=== PATIENT | female | born 1980 | race Caucasian/White ===

== ENCOUNTER 2017-02-21 17:25 | Observation (INO) | payer OTHER ==
[~2017-02-21] VITALS: Ht 165 cm; Wt 98.0 kg
[~2017-02-21 17:25] MED LIST: DOCU-119 PO; FERR-72 PO; IBUP-2070 PO
[2017-02-21] MEDS ORDERED: PREN1TAB80 PO (17:36)
[2017-02-21 17:56] VITALS: BP 114/62
== END 2017-02-21 20:23 | disposition home or self-care (01) ==
LOC: 4S 17:25
PROVIDERS: ADMIT Obstetrics & Gynecology; ATTEND Obstetrics & Gynecology
DX: O36.8130 Decreased fetal movements, third trimester, not applicable or unspecified (principal); Z3A.39 39 weeks gestation of pregnancy
CPT/HCPCS: 59025; G0378

== ENCOUNTER 2017-03-06 11:46 | Inpatient (IN) | payer OTHER ==
[~2017-03-06] VITALS: Ht 165.1 cm; Wt 99.8 kg
[~2017-03-06 11:46] MED LIST changes: -DOCU-119 PO; -IBUP-2070 PO; +PREN1TAB80 PO
[2017-03-06 12:05] VITALS: BP 126/84
[2017-03-06 14:27] LABS: GLUCOSE,POINT OF CARE 84 MG/DL (70-110)
[2017-03-06] MEDS ORDERED: OXYTOCIN 30 UNITS/LACT RINGERS 500 ML IV PRN (14:55)
[2017-03-06] MEDS: RINGERS SOLUTION,LACTATED 1,000 ML IV SCH ×2 (15:48→18:00)
[2017-03-06] MEDS ORDERED: RINGERS SOLUTION,LACTATED 1,000 ML IV PRN (16:26)
[2017-03-06] MEDS ORDERED: METOCLOPRAMIDE HCL 5 MG/ML 2 ML VIAL IVP PRN (16:30)
[2017-03-06] MEDS ORDERED: CITRIC ACID/SODIUM CITRATE 30 ML SOLUTION UDCUP PO PRN (16:30)
[2017-03-06] MEDS ORDERED: BUPIVACAINE HCL/PF 0.25% 10 ML VIAL ONE (17:07)
[2017-03-06] MEDS ORDERED: LIDOCAINE HCL/PF 2% 5 ML VIAL ONE (17:07)
[2017-03-06] MEDS ORDERED: FentaNYL/BUPIV 0.125%/NS/PF 200 ML ED ONE (17:08)
[2017-03-06 17:09] LABS: BASOPHILS % (AUTO) 0.2 % (0.0-2.0); HEMATOCRIT 32.2 % (36-46); HEMOGLOBIN 10.3 g/dL (12.0-16.0); LYMPHOCYTES # (AUTO) 2.3 K/uL (1.0-4.8); LYMPHOCYTES % (AUTO) 24.3 % (22.0-44.0); MEAN CORPUSCULAR HEMOGLOBIN 27.6 pg (26.0-34.0); MEAN CORPUSCULAR HGB CONC 31.9 G/dL (31.0-37.0); MEAN CORPUSCULAR VOLUME 86 fL (80-100); MONOCYTES # (AUTO) 0.5 K/uL (0.1-1.0); MONOCYTES % (AUTO) 5.1 % (2.0-9.0); NEUTROPHILS # (AUTO) 6.5 K/uL (1.8-7.7); NEUTROPHILS % (AUTO) 69.4 % (40.0-70.0); RED BLOOD CELL COUNT(AUTO) 3.73 MIL/uL (4.00-5.20); WHITE BLOOD COUNT (AUTO) 9.3 K/uL (4.5-11.0)
[2017-03-06] MEDS ORDERED: FentaNYL CITRATE-PF 100 MCG/2 ML VIAL ONE (17:09)
[2017-03-06] MEDS ORDERED: FentaNYL/BUPIV 0.125%/NS/PF 200 ML ED PRN (17:55)
[2017-03-06] MEDS ORDERED: PROMETHAZINE HCL 12.5 MG in SODIUM CHLORIDE 0.9% 50 ML IV PRN (18:00)
[2017-03-06] MEDS ORDERED: ONDANSETRON HCL 4 MG/2 ML VIAL IVP PRN (18:00)
[2017-03-06] MEDS ORDERED: NALBUPHINE HCL 10 MG/ML VIAL IVP PRN ×2 (18:00)
[2017-03-06] MEDS ORDERED: DiphenhydrAMINE HCL 50 MG/ML VIAL IVP PRN (18:00)
[2017-03-06] MEDS ORDERED: OXYGEN THERAPY IH SCH (20:00)
[2017-03-06] MEDS ORDERED: RINGERS SOLUTION,LACTATED 1,000 ML IV ONE (21:34)
[2017-03-06] MEDS ORDERED: IBUPROFEN 600 MG TABLET PO PRN (21:45)
[2017-03-06] MEDS ORDERED: MEASLES/MUMPS/RUBELLA VACCINE, LIVE 0.5 ML/VIAL SQ ONE (21:45)
[2017-03-06] MEDS ORDERED: OxyCODONE HCL/ACETAMINOPHEN 5-325 MG TABLET PO PRN ×2 (21:45)
[2017-03-06] MEDS ORDERED: BENZOCAINE 20%/MENTHOL 56 GM SPRAY CANISTER TP PRN (21:45)
[2017-03-06] MEDS ORDERED: GLYCERIN/WITCH HAZEL LEAF 40 PADS JAR TP PRN (21:45)
[2017-03-06] MEDS ORDERED: LANOLIN 7 GM OINTMENT TP PRN (21:45)
[2017-03-06] MEDS ORDERED: OXYTOCIN 30 UNITS/LACT RINGERS 500 ML IV ONE (22:00)
[2017-03-07] MEDS ORDERED: MAGNESIUM HYDROXIDE SUSPENSION 30 ML UDCUP PO SCH (09:00)
[2017-03-07 12:11] LABS: BASOPHILS # (AUTO) 0.13 K/uL (0.00-0.20); BASOPHILS % (AUTO) 0.8 % (0.0-2.0); EOSINOPHILS # (AUTO) 0.05 K/uL (0.00-0.70); EOSINOPHILS % (AUTO) 0.36 % (1.0-6.0); HEMATOCRIT 29.1 % (36-46); HEMOGLOBIN 9.5 g/dL (12.0-16.0); LYMPHOCYTES # (AUTO) 2.1 K/uL (1.0-4.8); LYMPHOCYTES % (AUTO) 13.7 % (22.0-44.0); MEAN CORPUSCULAR HEMOGLOBIN 28.4 pg (26.0-34.0); MEAN CORPUSCULAR HGB CONC 32.6 G/dL (31.0-37.0); MEAN CORPUSCULAR VOLUME 87 fL (80-100); MONOCYTES # (AUTO) 0.9 K/uL (0.1-1.0); MONOCYTES % (AUTO) 5.7 % (2.0-9.0); NEUTROPHILS # (AUTO) 11.9 K/uL (1.8-7.7); NEUTROPHILS % (AUTO) 79.4 % (40.0-70.0); RED BLOOD CELL COUNT(AUTO) 3.34 MIL/uL (4.00-5.20); RED CELL DISTRIBUTION WIDTH 14.6 % (11.5-14.5)
[2017-03-08] MEDS ORDERED: FERR-89 PO (08:52)
[2017-03-08] MEDS ORDERED: DSS100 PO (08:53)
[2017-03-08] MEDS ORDERED: IBUP-2070 PO (08:55)
== END 2017-03-08 09:25 | disposition home or self-care (01) | DRG 775 ==
LOC: 4S 11:46 → OBSVTOIN 11:46
PROVIDERS: ADMIT Obstetrics & Gynecology; ATTEND Obstetrics & Gynecology
PROC: 10E0XZZ Delivery of Products of Conception, External Approach (ICD-10-PCS; principal; 2017-03-06)
PROC: 10907ZC Drainage of Amniotic Fluid, Therapeutic from Products of Conception, Via Natural or Artificial Opening (ICD-10-PCS; 2017-03-06)
PROC: 3E0S3CZ (ICD-10-PCS; 2017-03-06)
PROC: 00HU33Z Insertion of Infusion Device into Spinal Canal, Percutaneous Approach (ICD-10-PCS; 2017-03-06)
DX: O24.429 Gestational diabetes mellitus in childbirth, unspecified control (principal); O16.4 Unspecified maternal hypertension, complicating childbirth; O99.214 Obesity complicating childbirth; E66.9 Obesity, unspecified; O99.02 Anemia complicating childbirth; Z37.0 Single live birth; Z88.8 Allergy status to other drugs, medicaments and biological substances; Z88.5 Allergy status to narcotic agent; Z3A.41 41 weeks gestation of pregnancy; Z28.9 Immunization not carried out for unspecified reason; Z68.36 Body mass index [BMI] 36.0-36.9, adult
CPT/HCPCS: 82962; 86850; 86900; 86901; J2590; J3010; J3490; J7120

== ENCOUNTER 2018-08-12 19:50 | Observation (INO) | payer OTHER ==
[~2018-08-12] VITALS: Ht 165 cm; Wt 95.3 kg
[~2018-08-12 19:50] MED LIST changes: +DSS100 PO; -FERR-72 PO; +FERR-89 PO; +IBUP-2070 PO
[2018-08-12 20:56] VITALS: BP 116/73
== END 2018-08-12 21:50 | disposition home or self-care (01) ==
LOC: 4S 19:50
PROVIDERS: ADMIT Obstetrics & Gynecology; ATTEND Obstetrics & Gynecology
DX: O62.9 Abnormality of forces of labor, unspecified (principal); O26.893 Other specified pregnancy related conditions, third trimester; R10.30 Lower abdominal pain, unspecified; O09.523 Supervision of elderly multigravida, third trimester; Z3A.39 39 weeks gestation of pregnancy
CPT/HCPCS: 59025; G0378

== ENCOUNTER 2018-08-18 06:49 | Observation (INO) | payer OTHER ==
[~2018-08-18] VITALS: Ht 165 cm; Wt 94.3 kg
[2018-08-18] MEDS ORDERED: OXYTOCIN 30 UNITS/LACT RINGERS 500 ML IV ONE (07:15)
[2018-08-18] MEDS ORDERED: CITRIC ACID/SODIUM CITRATE 30 ML SOLUTION UDCUP PO PRN (07:15)
[2018-08-18] MEDS ORDERED: RINGERS SOLUTION,LACTATED 1,000 ML IV PRN (07:15)
[2018-08-18] MEDS ORDERED: METOCLOPRAMIDE HCL 5 MG/ML 2 ML VIAL IVP PRN (07:15)
[2018-08-18] MEDS ORDERED: FentaNYL CITRATE-PF 100 MCG/2 ML VIAL IVP PRN (07:15)
[2018-08-18 07:49] LABS: BASOPHILS % (AUTO) 0.7 % (0.0-2.0); EOSINOPHILS % (AUTO) 1.6 % (1.0-6.0); LYMPHOCYTES # (AUTO) 2.6 K/uL (1.0-4.8); MEAN CORPUSCULAR HEMOGLOBIN 26.7 pg (26.0-34.0); MEAN CORPUSCULAR HGB CONC 33.3 G/dL (31.0-37.0); MEAN CORPUSCULAR VOLUME 80 fL (80-100); MONOCYTES # (AUTO) 0.6 K/uL (0.1-1.0); MONOCYTES % (AUTO) 5.6 % (2.0-9.0); NEUTROPHILS # (AUTO) 6.6 K/uL (1.8-7.7); NEUTROPHILS % (AUTO) 66.1 % (40.0-70.0); PLATELET COUNT (AUTO)-OB 196 K/uL (150-450); RED BLOOD CELL COUNT(AUTO) 3.75 MIL/uL (4.00-5.20); RED CELL DISTRIBUTION WIDTH 16.1 % (11.5-14.5)
[2018-08-18 07:50] VITALS: BP 104/64
[2018-08-18] MEDS ORDERED: OXYGEN THERAPY IH SCH (08:00)
[2018-08-18] MEDS: RINGERS SOLUTION,LACTATED 1,000 ML IV SCH ×3 (08:50→23:37)
[2018-08-18] MEDS: MISOPROSTOL 25 MCG TABLET PO SCH ×3 (09:30→18:37)
== END 2018-08-19 03:00 | disposition home or self-care (01) ==
LOC: 4S 06:49 → OBSVTOIN 06:49 → INTOOBSV 06:49
PROVIDERS: ADMIT Obstetrics & Gynecology; ATTEND Obstetrics & Gynecology
DX: O48.0 Post-term pregnancy (principal); O09.523 Supervision of elderly multigravida, third trimester; Z3A.40 40 weeks gestation of pregnancy
CPT/HCPCS: 36415; 59025; 85025; 86850; 86900; 86901; G0378 ×2; J7120

== ENCOUNTER 2018-08-19 19:12 | Inpatient (IN) | payer OTHER ==
[~2018-08-19] VITALS: Ht 165 cm; Wt 95.3 kg
[2018-08-19] MEDS ORDERED: OXYTOCIN 30 UNITS/LACT RINGERS 500 ML IV ONE (19:19)
[2018-08-19] MEDS ORDERED: RINGERS SOLUTION,LACTATED 1,000 ML IV ONE (19:19)
[2018-08-19] MEDS ORDERED: LIDOCAINE/PF 1% 30 ML VIAL INJ PRN (19:30)
[2018-08-19] MEDS ORDERED: METOCLOPRAMIDE HCL 5 MG/ML 2 ML VIAL IVP PRN (19:30)
[2018-08-19] MEDS ORDERED: FentaNYL CITRATE-PF 100 MCG/2 ML VIAL IVP PRN (19:30)
[2018-08-19] MEDS ORDERED: CITRIC ACID/SODIUM CITRATE 30 ML SOLUTION UDCUP PO PRN (19:30)
[2018-08-19 20:03] LABS: BASOPHILS % (AUTO) 0.4 % (0.0-2.0); EOSINOPHILS % (AUTO) 1.1 % (1.0-6.0); HEMATOCRIT 29.2 % (36-46); HEMOGLOBIN 9.9 g/dL (12.0-16.0); LYMPHOCYTES # (AUTO) 2.5 K/uL (1.0-4.8); LYMPHOCYTES % (AUTO) 25.5 % (22.0-44.0); MEAN CORPUSCULAR HEMOGLOBIN 26.6 pg (26.0-34.0); MEAN CORPUSCULAR HGB CONC 33.8 G/dL (31.0-37.0); MEAN CORPUSCULAR VOLUME 79 fL (80-100); MONOCYTES # (AUTO) 0.6 K/uL (0.1-1.0); MONOCYTES % (AUTO) 6.4 % (2.0-9.0); NEUTROPHILS # (AUTO) 6.6 K/uL (1.8-7.7); NEUTROPHILS % (AUTO) 66.6 % (40.0-70.0); PLATELET COUNT (AUTO) 191 K/uL (150-450); RED BLOOD CELL COUNT(AUTO) 3.71 MIL/uL (4.00-5.20); RED CELL DISTRIBUTION WIDTH 15.9 % (11.5-14.5)
[2018-08-19] MEDS: RINGERS SOLUTION,LACTATED 1,000 ML IV SCH (20:34)
[2018-08-19 21:09] VITALS: BP 119/75
[2018-08-19] MEDS ORDERED: MISOPROSTOL 25 MCG TABLET VG SCH (21:15)
[2018-08-20] MEDS ORDERED: OXYTOCIN 30 UNITS/LACT RINGERS 500 ML IV PRN (01:00)
[2018-08-20] MEDS ORDERED: ROPIVACAINE HCL/PF 0.2% 100 ML ED ONE (01:28)
[2018-08-20] MEDS ORDERED: ROPIVACAINE HCL/PF 0.2% 100 ML ED PRN (02:00)
[2018-08-20] MEDS ORDERED: DiphenhydrAMINE HCL 50 MG/ML VIAL IVP PRN (02:00)
[2018-08-20] MEDS ORDERED: ONDANSETRON HCL 4 MG/2 ML VIAL IVP PRN (02:00)
[2018-08-20] MEDS: RINGERS SOLUTION,LACTATED 1,000 ML IV SCH ×2 (02:24→09:18)
[2018-08-20] MEDS ORDERED: OXYTOCIN 30 UNITS/LACT RINGERS 500 ML IV ONE (13:13)
[2018-08-20] MEDS ORDERED: BENZOCAINE 20%/MENTHOL 56 GM SPRAY CANISTER TP PRN (13:15)
[2018-08-20] MEDS ORDERED: GLYCERIN/WITCH HAZEL LEAF 40 PADS JAR TP PRN (13:15)
[2018-08-20] MEDS ORDERED: LANOLIN 7 GM OINTMENT TP PRN (13:15)
[2018-08-20] MEDS ORDERED: OxyCODONE HCL/ACETAMINOPHEN 5-325 MG TABLET PO PRN ×2 (13:15)
[2018-08-20] MEDS: IBUPROFEN 800 MG TABLET PO PRN ×2 (13:33→18:56)
[2018-08-20] MEDS: MAGNESIUM HYDROXIDE SUSPENSION 30 ML UDCUP PO PRN (21:18)
[2018-08-21 06:22] LABS: BASOPHILS % (AUTO) 0.3 % (0.0-2.0); EOSINOPHILS % (AUTO) 1.1 % (1.0-6.0); HEMATOCRIT 27.4 % (36-46); HEMOGLOBIN 9.1 g/dL (12.0-16.0); LYMPHOCYTES # (AUTO) 2.6 K/uL (1.0-4.8); LYMPHOCYTES % (AUTO) 24.8 % (22.0-44.0); MEAN CORPUSCULAR HEMOGLOBIN 26.7 pg (26.0-34.0); MEAN CORPUSCULAR HGB CONC 33.1 G/dL (31.0-37.0); MEAN CORPUSCULAR VOLUME 81 fL (80-100); MONOCYTES # (AUTO) 0.6 K/uL (0.1-1.0); MONOCYTES % (AUTO) 6.1 % (2.0-9.0); NEUTROPHILS # (AUTO) 7.1 K/uL (1.8-7.7); NEUTROPHILS % (AUTO) 67.7 % (40.0-70.0); PLATELET COUNT (AUTO)-OB 166 K/uL (150-450); RED BLOOD CELL COUNT(AUTO) 3.39 MIL/uL (4.00-5.20); RED CELL DISTRIBUTION WIDTH 16.2 % (11.5-14.5)
[2018-08-21] MEDS: MAGNESIUM HYDROXIDE SUSPENSION 30 ML UDCUP PO PRN (09:39)
[2018-08-21] MEDS ORDERED: IBUP-2071 PO (11:51)
== END 2018-08-21 13:10 | disposition home or self-care (01) | DRG 807 ==
LOC: OBSVTOIN 19:12 → 4S 19:12
PROVIDERS: ADMIT Obstetrics & Gynecology; ATTEND Obstetrics & Gynecology
PROC: 10E0XZZ Delivery of Products of Conception, External Approach (ICD-10-PCS; principal; 2018-08-20)
PROC: 3E0R3BZ Introduction of Anesthetic Agent into Spinal Canal, Percutaneous Approach (ICD-10-PCS; 2018-08-20)
PROC: 00HU33Z Insertion of Infusion Device into Spinal Canal, Percutaneous Approach (ICD-10-PCS; 2018-08-20)
DX: O09.523 Supervision of elderly multigravida, third trimester (principal); Z37.0 Single live birth; Z3A.40 40 weeks gestation of pregnancy
CPT/HCPCS: J2590; J2795; J7120